=== PATIENT | male | born 1955 | race Caucasian/White ===

== ENCOUNTER 2024-01-26 15:53 | Emergency (ER) | payer MEDICARE, SELFPAY ==
[2024-01-26 16:14] VITALS: BP 133/73; PULSE 67; RESP 16; TEMP 36.3; O2SAT 96; BMI 23.1
[2024-01-26 16:58] VITALS: O2SAT 98
--- NOTE | 2024-01-26 16:58 | CRLHL7_ITS ---
For Patients: As a result of the Century Cures Act, medical imaging exams and procedure reports are released immediately into your electronic medical record. You may view this report before your referring provider. If you have questions, please contact your health care provider. INDICATION: Dyspnea. TECHNIQUE: Chest radiographs, 2 views. COMPARISON: CT chest abdomen and pelvis 09/08/2016. FINDINGS: Cardiovascular/Mediastinum: Normal heart size. Unremarkable. Lungs: No focal consolidation. [place] like opacification in the lung bases bilaterally, likely subsegmental atelectasis and/or scarring. Airways: Trachea remains midline. Pleura: No pleural effusions or pneumothorax. Bones: No acute osseous abnormalities. Upper abdomen: Unremarkable. IMPRESSION: No acute cardiopulmonary process. Dictated by Flavio Mac MD @ 01/26/2024 7:43:09 PM (Electronically Signed)
--- NOTE | 2024-01-26 17:10 | ED_ITS ---
HPI - General Adult General Chief complaint: Shortness of Breath/Dyspnea Stated complaint: shortness of breath, chest pain Time Seen by Provider: 01/26/24 16:57 Source: patient Mode of arrival: ambulatory Limitations: no limitations History of Present Illness HPI narrative: 68-year-old male coming in today concerned about chest pain and cough. States he has had chest pain on and off for the last 8 or 9 days. Nothing seems to make it better or worse. He does think that the pain is getting better with time. He states that his chest was so sore at 1st that he could hardly touch his chest. He does have stairs in his home, he states that the pain is not worse when he has to climb stairs. He complains of cough that is not getting better, he feels like phlegm get stuck in his throat and he can not clear out his lungs. He states that he had a fevers for several days, has not had 1 for the last 5 days. He states that he was in bed for 3 days because he was so ill, again it has been slowly improving. He denies diarrhea or constipation. Appetite has been down. states he has lost approximately 50-60 lb in the last several months. Sleep is unchanged. No nausea. Does not sound like he has been vomiting. No skin rashes. No abdominal discomfort. Patient states that his clothes no longer fit him. Patient also states that when he eats food they seem to get stuck in his throat. He is afraid to eat because of this. Related Data Home Medications ?Medication ?Instructions ?Recorded ?Confirmed No Known Home Medications 01/26/24 01/26/24 Allergies Allergy/AdvReac Type Severity Reaction Status Date / Time No Known Drug Allergies Allergy Verified 01/26/24 16:16 Review of Systems Status of ROS: Reports: 10 or more systems reviewed and unremarkable except as noted in History and below [facility] Social History Smoking Status: Never smoker Do you use any of these nicotine containing products: None How often do you have a drink containing alcohol: never How often do you have six or more drinks on one occasion: Never AUDIT-C Alcohol total score: 0 Non-prescribed substance use: denies use service: No Exam Narrative: Exam Narrative: Well-nourished well-developed patient in no acute distress. Alert and oriented. Answers questions appropriately. Mood and affect are appropriate. Thoughts are goal oriented and rational. No tangential or magical thinking noted. Patient speaks in full sentences without needing to catch his breath. Patient is not a good historian. For example, when I asked him if he has been vomiting he says he has been spitting up phlegm. When I asked him to clarify he spitting up phlegm or vomiting phlegm, he cannot tell me. HEENT: Normocephalic atraumatic. Pupils are equally round reactive to light. Extraocular muscles are intact. Conjunctivae are moist without any icterus noted. He has a small conjunctival hemorrhage on the left. Moist mucous membranes. Poor dentition. Posterior pharynx is normal. Neck is soft without any lymphadenopathy or thyromegaly. No masses are appreciated. Cardiovascular: Heart is regular rate and rhythm S1 and S2 are present without any murmurs. Lungs: Clear to auscultation bilaterally no wheezes rhonchi or rales are appreciated. Patient takes deep breaths without any discomfort. Abdomen: Soft and nontender nondistended with normal bowel sounds. No guarding or rebound. No masses or organomegaly appreciated. Extremities: Bilateral lower extremities are without edema. Normal DP and PT pulses. Skin: Well perfused without any obvious rashes. Const: Vital Signs, click to edit/add: Vital Signs - 24 hr 01/26/24 16:14 01/26/24 16:58 01/26/24 19:42 Temperature 97.4 F L 97.3 F L Pulse Rate [Pulse Oximeter] 67 66 Respiratory Rate 16 18 Blood Pressure [Ri ght Upper Arm] 133/73 161/88 H Pulse Oximetry 96 98 96 Oxygen Delivery Me thod Room Air Room Air Course Course ED Course: EKG, read by me, shows normal sinus rhythm with a pulse of 66. Chest x-ray, read by me, does not show any acute pathology. CBC is unremarkable. Chemistries are normal. LFTs are normal. Troponin is less than 0.01. Normal CRP. COVID positive, influenza negative, RSV negative. Discussed results with patient his family. And appears that he is likely recovering from COVID-19 infection. However, given his continued chest discomfort, and although it does not sound cardiac in nature at this point I do think a stress test would be an important next step for this patient. As far as food getting stuck, we will schedule the patient for an outpatient EGD. This could certainly explain his weight loss. Vital Signs Vital signs: Initial Vital Signs Temperature 97.4 F L 01/26/24 16:14 Temperature Source Temporal Artery Scan 01/26/24 16:14 Pulse Rate 67 01/26/24 16:14 Respiratory Rate 16 01/26/24 16:14 Blood Pressure 133/73 01/26/24 16:14 Blood Pressure Mean 93 01/26/24 16:14 Blood Pressure Position Sitting 01/26/24 16:14 Pulse Oximetry 96 01/26/24 16:14 Oxygen Delivery Method Room Air 01/26/24 16:14 Vital Signs Temperature 97.4 F L 01/26/24 16:14 Pulse Rate 67 01/26/24 16:14 Respiratory Rate 16 01/26/24 16:14 Blood Pressure 133/73 01/26/24 16:14 Pulse Oximetry 96 01/26/24 16:14 Oxygen Delivery Method Room Air 01/26/24 16:14 Temperature 97.3 F L 01/26/24 19:42 Pulse Rate 66 01/26/24 19:42 Respiratory Rate 18 01/26/24 19:42 Blood Pressure 161/88 H 01/26/24 19:42 Pulse Oximetry 96 01/26/24 19:42 Oxygen Delivery Method Room Air 01/26/24 19:42 Medical Decision Making MDM Narrative Medical decision making narrative: [age] year male with COVID-19 infection, in recovery from this infection at this time. Continued rest, hydration. Chest pain-will order an outpatient stress test. Weight loss and food getting stuck in the esophagus - will order an outpatient EGD. Patient does not have primary care provider hence all the reasons his tests are getting ordered from the ED, he will establish care though to go over his results. Lab Data Lab results reviewed: Yes I reviewed the patient's lab results Labs: Lab Results 01/26/24 01/26/24 Range/Units 16:58 17:19 WBC 9.88 (4.50-11.00) K/uL RBC 4.51 (4.30-5.90) m/uL Hgb 13.5 (13.5-17.5) gm/dL Hct 40.7 (37.0-53.0) % MCV 90 (80-100) fL MCH 30 (26-34) pg MCHC 33 (32-36) gm/dL RDW Coeff of Khushboo 12.6 (11.5-15.5) % Plt Count 422 (140-440) K/uL Neut % (Auto) 73.1 H (42.0-72.0) % Lymph % (Auto) 16.2 L (20-44) % [place] % (Auto) 8.4 (0.0-11.0) % Eos % (Auto) 1.9 (0.0-7.0) % Baso % (Auto) 0.3 (0.0-3.0) % Neut # (Auto) 7.20 H (1.7-7.0) K/uL Lymph # (Auto) 1.60 (0.90-2.90) K/uL [place] # (Auto) 0.80 (0.00-0.90) K/UL Eos # (Auto) 0.19 (0.00-0.50) K/uL Baso # (Auto) 0.03 (0.00-0.30) K/uL Abs Immat Gran (auto) 0.01 (0.00-0.30) K/uL Imm/Tot Granulo (auto) 0.1 % Sodium 137 (135-149) mmol/L Potassium 4.3 (3.6-5.1) mmol/L Chloride 103 (96-114) mmol/L Carbon Dioxide 26 (20-32) mmol/L Anion Gap 8 (7-15) mEq/L BUN 18 (7-30) mg/dL Creatinine 0.9 (0.5-1.5) mg/dL Estimated Creat Clear 76.04 Estimated GFR 92 ml/min Glucose 88 (60-115) mg/dL Lactate 0.8 (0.5-1.9) mmol/L Calcium 9.4 (8.4-10.6) mg/dL Total Bilirubin 0.6 (0.1-1.5) mg/dL Direct Bilirubin 0.5 (0.0-0.5) mg/dL AST 32 (12-35) U/L ALT 23 (4-50) U/L Alkaline Phosphatase 87 (40-150) U/L Troponin I < 0.01 L (0.01-0.04) ng/mL C-Reactive Protein 1.0 (0.5-1.0) mg/dL NT-Pro-B Natriuret Pep 101 pg/mL Total Protein 8.5 H (6.0-8.3) g/dL Albumin 4.8 (3.3-5.0) g/dL SARS-CoV-2 (PCR) POSITIVE SARS-CoV-2 A (Negative) Influenza Type A (PCR) Negative PCR FLU A (Negative) Influenza Type B (PCR) Negative PCR FLU B (Negative) RSV (PCR) Negative PCR RSV (Negative) Imaging Data Chest x-ray: Attestation: I have reviewed the pertinent imaging results. Radiologist's impression: Chest radiographs, 2 views. COMPARISON: CT chest abdomen and pelvis 09/08/2016. FINDINGS: Cardiovascular/Mediastinum: Normal heart size. Unremarkable. Lungs: No focal consolidation. [place] like opacification in the lung bases bilaterally, likely subsegmental atelectasis and/or scarring. Airways: Trachea remains midline. Pleura: No pleural effusions or pneumothorax. Bones: No acute osseous abnormalities. Upper abdomen: Unremarkable. IMPRESSION: No acute cardiopulmonary process. ECG Data Attestation: I personally reviewed and interpreted this ECG as follows: Discharge Plan Discharge Clinical Impression: COVID-19, Atypical chest pain, Dysphagia Patient Disposition: Home, Self-Care Condition: Stable Additional Instructions: Make sure to stay well hydrated and eat nutritious meals. Rest as much as you need to. You will be scheduled for an outpatient stress test to make sure there is no other cause for your chest pain and an outpatient EGD which is a camera to look inside your esophagus and stomach. This is very important to ascertain why food is getting stuck when you eat. You need to establish care with a primary care provider so you have someone to go over these results with you. Prescriptions: No Action No Known Home Medications Follow Up/Referrals: Provider,Not a Local [Primary Care Provider] - Stand Alone Forms: Zigh[facility] Info Instructions
[2024-01-26 17:26] LABS: Lactate* 0.8 mmol/L (0.5-1.9)
[2024-01-26 17:29] LABS: Basophils Absolute Auto 0.03 K/uL (0.00-0.30); Basophils Percent Auto 0.3 % (0.0-3.0); Eosinophils Absolute Auto 0.19 K/uL (0.00-0.50); Eosinophils Percent Auto 1.9 % (0.0-7.0); Hematocrit 40.7 % (37.0-53.0); Hemoglobin* 13.5 gm/dL (13.5-17.5); Immature Granulocytes Abs Auto 0.01 K/uL (0.00-0.30); Immature Granulocytes Pct Auto 0.1 %; Lymphocytes Percent Auto 16.2 % (20-44); Mean Corpuscular HGB Conc 33 gm/dL (32-36); Mean Corpuscular Hemoglobin 30 pg (26-34); Mean Corpuscular Volume 90 fL (80-100); Monocytes Percent Auto 8.4 % (0.0-11.0); Neutrophils Percent Auto 73.1 % (42.0-72.0); Platelet Count* 422 K/uL (140-440); RDW Coefficient of Variation % 12.6 % (11.5-15.5); Red Blood Count 4.51 m/uL (4.30-5.90); White Blood Count* 9.88 K/uL (4.50-11.00)
[2024-01-26 17:34] LABS: Slide Review Reflex No
[2024-01-26 18:34] LABS: Chloride* 103 mmol/L (96-114)
[2024-01-26 18:35] LABS: Albumin* 4.8 g/dL (3.3-5.0); Potassium* 4.3 mmol/L (3.6-5.1); Sodium* 137 mmol/L (135-149)
[2024-01-26 18:37] LABS: Creatinine* 0.9 mg/dL (0.5-1.5); Est. Creatinine Clearance* 76.04; Estimated Glomerular Filt Rate 92 ml/min
[2024-01-26 18:38] LABS: Alanine Aminotransferase* 23 U/L (4-50); Alkaline Phosphatase* 87 U/L (40-150); Anion Gap 8 mEq/L (7-15); Aspartate Amino Transferase* 32 U/L (12-35); Bilirubin Direct* 0.5 mg/dL (0.0-0.5); Bilirubin Total* 0.6 mg/dL (0.1-1.5); Blood Urea Nitrogen* 18 mg/dL (7-30); Carbon Dioxide* 26 mmol/L (20-32); Glucose* 88 mg/dL (60-115); Total Protein* 8.5 g/dL (6.0-8.3)
[2024-01-26 18:39] LABS: Calcium* 9.4 mg/dL (8.4-10.6)
[2024-01-26 18:50] LABS: NT Pro B Type NatriureticPept* 101 pg/mL; Troponin I* < 0.01 ng/mL (0.01-0.04)
[2024-01-26 19:16] LABS: PCR FLU A Negative PCR FLU A (Negative); PCR FLU B Negative PCR FLU B (Negative); PCR RSV Negative PCR RSV (Negative); SARS PCR* POSITIVE SARS-CoV-2 (Negative)
[2024-01-26 19:42] VITALS: BP 161/88; PULSE 66; RESP 18; TEMP 36.3; O2SAT 96
--- NOTE | 2024-01-26 19:42 | PC.NURSE ---
Physician in room talking with patient and family. Pt. denies discomfort.
== END 2024-01-26 20:34 | disposition home or self-care (01) ==
PROVIDERS: Emergency Provider Family Medicine
DX: U07.1 COVID-19 (principal); R07.9 Chest pain, unspecified
CPT/HCPCS: 36415; 71046; 80048; 80076; 83605; 83880; 84484; 85025; 86140; 87631; 93005; 94761; 99284

== ENCOUNTER 2024-02-09 12:43 | Outpatient (CLI) | payer MEDICARE, SELFPAY ==
[2024-02-09] MEDS: ASPIRIN 81 MG TAB.CHEW PO (14:22)
--- NOTE | 2024-02-09 14:39 | W.PM.STED ---
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 He is here today with his daughter. Follow-up appointment with Dr. Hernadez is already scheduled. Initial EKG shows normal sinus rhythm with a ventricular rate of 99 blood pressure 164/72, no acute ST wave changes are noted. Patient exercised for a total time of 9 minutes, reached him metabolic limit of 10.5 Mets with a maximum heart rate of 144 which is 112% of the maximum. During this test there were some nonspecific changes of ST wave changes, but nonspecific for ischemia. He did have some chest discomfort after he exercise, described his chest with some radiation to his neck. This came on after, 5 minutes into recovery. He was offered to go over to the emergency room, for further testing, but declined this. He did however agree to take aspirin 81 mg I gave him a dose there. Along with 81 mg after. He did have some reservations with this as he said when he was doing drugs in the past, it cause nosebleeds. I reassured him that I do not think it a small dose like this will cause it, but even if it does we can do cautery and stop the nosebleed. I explained the rationale of the aspirin, and follow up, explained to him the test is not in follow-up bowl, approximately 85% accurate in predicting flow-limiting lesion. But he exercised to a high level. Impression: Negative electrographic portion of stress test, positive subjective portion Follow up suggested: Initial read by tech and myself was negative wall motion abnormality, patient elected to go home at this point. He will take the aspirin 81 mg and follow-up with Dr. Hernadez in follow-up. I explained to him Cardiology over-read will be done on the echo portion. He was comfortable with this.
[2024-02-09 15:34] VITALS: BP 164/72; PULSE 96; RESP 16
== END 2024-02-09 14:15 | disposition home or self-care (01) ==
LOC: STRESS 12:44
PROVIDERS: PCP Family Medicine; Visit Provider Family Medicine
DX: R07.9 Chest pain, unspecified (principal); I35.1 Nonrheumatic aortic (valve) insufficiency; R53.83 Other fatigue
CPT/HCPCS: 93016; 93325; 93351; A9270

== ENCOUNTER 2024-02-14 10:31 | Outpatient (CLI) | payer MEDICARE, SELFPAY | END 2024-02-14 10:32 | disposition home or self-care (01) | PROVIDERS: PCP Family Medicine; Visit Provider Family Medicine | DX: Z01.818 Encounter for other preprocedural examination (principal); Z12.5 Encounter for screening for malignant neoplasm of prostate | CPT/HCPCS: G0103 ==

== ENCOUNTER 2024-02-29 13:30 | Outpatient (CLI) | payer MEDICARE, SELFPAY ==
--- NOTE | 2024-02-29 14:00 | CRLHL7_ITS ---
For Patients: As a result of the Century Cures Act, medical imaging exams and procedure reports are released immediately into your electronic medical record. You may view this report before your referring provider. If you have questions, please contact your health care provider. Indication: Weight loss Technique: CT through the abdomen and pelvis following 84 mL Isovue 370 IV contrast Comparison: CT chest abdomen and pelvis performed 09/08/2016 Findings: Lower chest: Mild atelectasis and/or scarring. Calcified coronary arterial atherosclerosis. Hepatobiliary: There are new but low-dense hepatic lesions compatible with benign biliary cysts, no significant parenchymal abnormality appreciated. Cholelithiasis. Spleen: Splenic granulomata. Pancreas: Unremarkable. Adrenal glands: Unremarkable. Kidneys: Punctate nonobstructing bilateral renal stones. No hydronephrosis. No significant parenchymal abnormality appreciated. Bowel: No obstruction. No focal perienteric or pericolonic stranding is appreciated. Vascular: Calcified and noncalcified atherosclerotic plaque. Lymph nodes: No gross lymphadenopathy. Peritoneum: No free air. No free fluid. : Unremarkable. Soft tissues: Tiny fat containing umbilical and right inguinal hernias. Bones: Lumbosacral fusion hardware. Degenerative changes of the spine and pelvis. Impression: Chronic findings as above with no abnormality appreciated to account for patient`s reported symptoms. Please note that all CT scans at this facility use dose modulation, iterative reconstruction, and/or weight-based dosing when appropriate to reduce radiation dose to as low as reasonably achievable. Dictated by Roman Bonilla MD @ 02/29/2024 8:32:28 PM (Electronically Signed)
[2024-02-29 14:04] LABS: Creatinine* 0.9 mg/dL (0.5-1.5); Estimated Glomerular Filt Rate 92 ml/min
--- NOTE | 2024-02-29 14:30 | CRLHL7_ITS ---
For Patients: As a result of the Century Cures Act, medical imaging exams and procedure reports are released immediately into your electronic medical record. You may view this report before your referring provider. If you have questions, please contact your health care provider. INDICATION: Dizziness. Weight loss. TECHNIQUE: CT of the head with and without contrast. 84 cc Isovue 370 administered. Coronal and sagittal reformats are included. COMPARISON: None. FINDINGS: No mass or pathologic intracranial enhancement. The major intracranial vascular structures fill normally with contrast material. No CT evidence of acute cortical infarct. No loss of morris white matter differentiation. No hyperdense vessels to suggest intracranial thrombus. No acute intracranial hemorrhage. No mass effect or midline shift. No hydrocephalus or extra-axial collections. Scattered white matter hypoattenuation, typical for chronic microvascular ischemic change. Intracranial vascular calcifications. No acute osseous abnormalities. Mastoid air cells and paranasal sinuses are clear. Normal soft tissues. IMPRESSION: 1. No CT evidence of acute cortical infarct. No acute intracranial hemorrhage. No other acute intracranial findings. 2. No mass, pathologic intracranial enhancement, or CT visualized vascular abnormality. Please note that all CT scans at this facility use dose modulation, iterative reconstruction, and/or weight-based dosing when appropriate to reduce radiation dose to as low as reasonably achievable. Dictated by Jerry Healy MD @ 02/29/2024 4:26:32 PM (Electronically Signed)
== END 2024-02-29 13:31 | disposition home or self-care (01) ==
LOC: CT 13:31
PROVIDERS: PCP Family Medicine; Visit Provider Family Medicine
DX: R63.4 Abnormal weight loss (principal); K76.9 Liver disease, unspecified; K40.90 Unilateral inguinal hernia, without obstruction or gangrene, not specified as recurrent; K42.9 Umbilical hernia without obstruction or gangrene; R51.9 Headache, unspecified; R13.10 Dysphagia, unspecified; R42 Dizziness and giddiness
CPT/HCPCS: 36415; 70470; 74177; 82565; Q9967

== ENCOUNTER 2024-03-08 09:36 | Outpatient (CLI) | payer MEDICARE, SELFPAY ==
--- NOTE | 2024-03-08 10:33 | W.ANESCHARGE ---
Anesthesia Charges Start Date/Time Anesthesia Start Date: 03/08/24 Anesthesia Start Time: 10:30 Stop Date/Time Anesthesia Stop Date: 03/08/24 Anesthesia Stop Time: 10:51
--- NOTE | 2024-03-08 10:53 | W.ANESCHARGE ---
Anesthesia Charges Start Date/Time Anesthesia Start Date: 03/08/24 Anesthesia Start Time: 10:30 Stop Date/Time Anesthesia Stop Date: 03/08/24 Anesthesia Stop Time: 10:51
== END 2024-03-08 09:37 | disposition home or self-care (01) ==
LOC: OP CLINIC 09:37
PROVIDERS: PCP Family Medicine; Visit Provider Surgery
DX: R13.10 Dysphagia, unspecified (principal); K44.9 Diaphragmatic hernia without obstruction or gangrene; K22.89 Other specified disease of esophagus; K31.89 Other diseases of stomach and duodenum
CPT/HCPCS: 00731; 43239; 88305; J2704; J3490

== ENCOUNTER 2024-04-17 09:01 | Outpatient (CLI) | payer MEDICARE, SELFPAY ==
--- NOTE | 2024-04-17 09:15 | CRLHL7_ITS ---
For Patients: As a result of the 21st Century Cures Act, medical imaging exams and procedure reports are released immediately into your electronic medical record. You may view this report before your referring provider. If you have questions, please contact your health care provider. EXAM: MRI OF THE RIGHT SHOULDER WITHOUT CONTRAST CLINICAL INDICATION: Right shoulder pain. COMPARISON PLAIN FILMS: None available at time of interpretation. COMPARISON CROSS-SECTIONAL IMAGING STUDIES: None available at time of interpretation. TECHNICAL: Axial, sagittal oblique and coronal oblique T1, PD, PD FS and T2-weighted images. Shoulder surface coil. FINDINGS: ROTATOR CUFF TENDONS AND MUSCLES AND DELTOID: Supraspinatus: Full-thickness tear of the entire supraspinatus tendon with medial retraction to the glenoid. Mild muscle atrophy. No muscle edema. Infraspinatus: Full-thickness tear of the anterior margin of the infraspinatus tendon. Moderate tendinopathy. No muscle atrophy or edema. Subscapularis: High-grade, near full-thickness tear of the subscapularis tendon. Mild muscle atrophy. No muscle edema. Teres Minor: No tendinosis, tendon tearing, muscle atrophy or muscle edema. Deltoid: No muscle atrophy or edema. BURSA: Subacromial-subdeltoid: Small amount of fluid in the subacromial subdeltoid bursa. BICEPS TENDON, LONG HEAD: Full-thickness tear and proximal retraction. CORACOACROMIAL ARCH: Acromial Morphology: Type 2 acromial morphology. Remodeling of the undersurface of the acromion. No downsloping of the acromion or subacromial enthesophyte. No significant subacromial spur. No os acromiale. Acromiohumeral Interval: Superior subluxation of the humeral head with narrowed humeral acromial interval. Coracohumeral Interval: Normal. ACROMIOCLAVICULAR JOINT REGION: AC Joint: Advanced arthropathy with inferior marginal osteophytes. Ligaments: The coracoclavicular ligaments are intact. GLENOHUMERAL JOINT: Joint space: Small glenohumeral joint effusion. Mild synovitis. No loose body. Humeral Head Articular Cartilage: Full-thickness chondromalacia centrally and superiorly. Mild hypertrophic changes. Glenoid Articular Cartilage: Moderate to high-grade chondromalacia superiorly. Mild hypertrophic changes. Labrum: Diffuse tearing and degeneration most prominent in the posterior labrum. No paralabral cyst. Alignment: Superior subluxation of the humeral head. Capsule: No capsular edema or abnormal capsular thickening. OSSEOUS STRUCTURES: No fracture, marrow edema or marrow replacement process. OTHER FINDINGS: There is no abnormality within the suprascapular or spinoglenoid notches nor within the quadrilateral space. No axillary adenopathy or mass. IMPRESSION: 1. Full-thickness tear of the supraspinatus tendon with medial retraction and mild muscle atrophy. 2. Full-thickness tear of the anterior margin of the infraspinatus tendon with moderate tendinopathy. 3. High-grade near full-thickness tear of the subscapularis tendon with mild muscle atrophy. 4. Full-thickness tear and proximal retraction of the long head of the biceps tendon. 5. Superior subluxation of the humeral head with narrowed humeral acromial distance. 6. Glenohumeral osteoarthritis. 7. Diffuse labral tearing and degeneration. 8. Glenohumeral joint effusion and fluid in the subacromial subdeltoid bursa. 9. Prominent arthropathy in the acromioclavicular joint. Dictated by Bennett Hernández MD @ 04/18/2024 10:33:27 AM (Electronically Signed)
== END 2024-04-17 09:02 | disposition home or self-care (01) ==
LOC: MRI 09:02
PROVIDERS: PCP Family Medicine; Visit Provider Family Medicine
DX: M25.511 Pain in right shoulder (principal); M75.101 Unspecified rotator cuff tear or rupture of right shoulder, not specified as traumatic; S46.811A Strain of other muscles, fascia and tendons at shoulder and upper arm level, right arm, initial encounter; M19.011 Primary osteoarthritis, right shoulder; M25.411 Effusion, right shoulder; S43.401A Unspecified sprain of right shoulder joint, initial encounter; G89.29 Other chronic pain
CPT/HCPCS: 73221

== ENCOUNTER 2024-07-02 15:23 | Outpatient (CLI) | payer MEDICARE, SELFPAY | END 2024-07-02 15:24 | disposition home or self-care (01) | PROVIDERS: PCP Family Medicine; Visit Provider Family Medicine | DX: R63.4 Abnormal weight loss (principal) | CPT/HCPCS: 80048; 80061; 85025 ==

== ENCOUNTER 2024-07-10 06:08 | Day surgery (SDC) | payer MEDICARE, SELFPAY ==
[2024-07-10] VITALS (23 sets, daily range): BP systolic 104–144; BP diastolic 66–92; PULSE 56–81; RESP 16–20; TEMP 35.8–36.8; O2SAT 91–97; BMI 25.1
[2024-07-10] MEDS: OXYCODONE (CR) 10 MG TAB.ER.12H PO (06:45)
[2024-07-10] MEDS: ACETAMINOPHEN 500 MG TABLET 1000 MG PO (06:45)
[2024-07-10] MEDS: CELECOXIB 200 MG CAPSULE PO (06:45)
[2024-07-10] MEDS: SODIUM CHLORIDE 0.9 % (FLUSH) 10 ML SYRINGE IVF (07:00)
[2024-07-10] MEDS: LACTATED RINGERS 1000 ML 1,000 ML 100 ML IV ×2 (07:00→11:27)
[2024-07-10] MEDS: fentaNYL 100 MCG/2 ML inj IVP (07:05)
[2024-07-10] MEDS: MIDAZOLAM HCL 1 MG/ML inj IVP (07:05)
--- NOTE | 2024-07-10 07:12 | SUR.PREOP ---
TIME?OUT:?05 PT/RN/MDA?VERIFICATION?OF?SURGICAL?SITE,?PROCEDURE,?AND?CONSENT OBTAINED?PRIOR?TO?INVASIVE?PROCEDURE.
[2024-07-10] MEDS: TRANEXAMIC ACID 100 MG/ML INJ 1000 MG IV (07:48)
[2024-07-10] MEDS: CEFAZOLIN 2 GM INJ IVP (07:48)
--- NOTE | 2024-07-10 09:17 | PM.ORPRC ---
Procedure Note Date of procedure: 07/10/24 Procedure: PREOPERATIVE DIAGNOSIS: Right shoulder rotator cuff tear arthropathy POSTOPERATIVE DIAGNOSIS: Right shoulder rotator cuff tear arthropathy NAME OF OPERATION: Right upper extremity reverse shoulder arthroplasty, biceps tenodesis SURGEON: Nahid Jiménez MD PAINTER DECORATOR: Jessica Ronquillo PA-C, LEONARD Perales ANESTHESIA: General endotracheal ESTIMATED BLOOD LOSS: 150 mL COMPLICATIONS: None SPECIMENS: None DRAINS: None PREOPERATIVE ANTIBIOTICS: Ancef 2 grams IMPLANTS: 1. Tornier 29 mm x 40 mm baseplate 2. 39 mm standard glenosphere 3. 8B humeral stem 4. High eccentric +0 humeral tray 5. 39mm +6 polyethylene INDICATIONS: The patient is a 68-year-old with a longstanding history of severe, unrelenting right shoulder pain secondary to rotator cuff tear arthropathy. Despite appropriate nonoperative management, including activity modification, anti-inflammatories, [id number] pain medication, physical therapy, and injections they continue to have pain and disability. Operative intervention was offered. The risks, benefits and expected outcomes were discussed in detail. These included but were not limited to: Infection, bleeding, injury to blood vessel or nerve, venous thromboembolism. All questions were answered to their satisfaction. Use of an assistant unit forester was necessary throughout the case for patient positioning and safety, soft tissue retraction, and closure. PROCEDURE: General anesthesia was administered. The patient was placed in the lazy beach chair position on the operating room table. The right upper extremity was prepped and draped in the usual sterile fashion. A standard deltopectoral incision was made. Subcutaneous dissection was taken with electrocautery to the deltopectoral interval. The cephalic vein was cauterized. We bluntly entered the deltopectoral interval. We freed up the deltoid. The upper 1/3 of the insertion of the pectoralis was divided with cautery. The static retractor was placed. The clavipectoral fascia and CA ligament were divided. The circumflex vessels were controlled with electrocautery. The biceps was torn and retracted distally. It was poor quality tissue. Two fiberWire sutures were placed in the subscapularis. The subscap was subperiosteally elevated off of the lesser tuberosity. The humeral head was delivered into the wound. The intramedullary humeral cutting guide was placed. We made the cut at the anatomic neck, in 20? of retroversion. Humeral sounds were used to assess the diameter of the canal. The broach was placed and had good rotational stability. The calcar reamer was used and the protective base plate cover was placed. Attention was then turned to the glenoid. Hohmann retractors were placed posteriorly. The labrum and biceps stump were sharply debrided. The origin of the inferior glenohumeral ligaments were subperiosteally released off of the glenoid. The drill guide was placed. The guide pin was placed in 0? of cephalic tilt. The reamer was used to bleeding bone. The central drill was used x2. The tap was used. The standard base plate was placed. This had excellent purchase. Locking screws x 2 were placed. The glenosphere was placed, the set screw was tightened. Attention then returned to the humerus. We placed a high eccentric standard base plate and standard poly. We reduced the shoulder and took it through a range of motion. It was found to be stable with appropriate soft tissue tension. Trial humeral components were removed. We placed #2 FiberWire sutures in the lesser tuberosity for subsequent subscap repair. We assembled the humeral component on the back table. We placed it in the center of our subscapularis repair sutures and tapped it down to our humeral cut. This had excellent purchase. The shoulder was reduced and again was found to be stable with appropriate soft tissue tension. We did a 3 min dilute Betadine solution soak. We irrigated the wound with 3 L of normal saline via pulse lavage. We repaired the subscapularis to the lesser tuberosity with our previously placed FiberWire sutures. The deltopectoral interval was loosely reapproximated with an 0 Vicryl in an interrupted [id number] fashion. Subcutaneous tissues were closed with the 2-0 Vicryl and a running 3-0 Monocryl suture. The skin was sealed with glue. A dry dressing and sling were applied. Sponge and needle counts were correct x2. The patient tolerated the procedure well, there were no apparent complications. They were awakened and extubated in the operating room, taken to the postanesthesia care unit in satisfactory condition. PLAN: The patient will be mobilized with physical therapy. The sling will be used for 6 weeks postoperatively. Active range of motion in forward flexion and abduction as tolerates. No external rotation greater than 0? for 6 weeks postoperatively. They will be discharged to home once medically appropriate.
--- NOTE | 2024-07-10 09:56 | P.ANES_ITS ---
Anesthesia Charges Start Date/Time Anesthesia Start Date: 07/10/24 Anesthesia Start Time: 07:19 Stop Date/Time Anesthesia Stop Date: 07/10/24 Anesthesia Stop Time: 09:54 Coding CPT Codes CPT Codes: ANESTH SHOULDER REPLACEMENT - 43934 ([id number]) P1 - NORMAL HEALTHY PATIENT, QK - BOTTOM POUNDER CEMENT SHOES 2-4 CNCRNT ANES PROC, QX - MANAGER CULINARY SVBernardino W/ MED DIRECTION
--- NOTE | 2024-07-10 09:56 | W.ANESCHARGE ---
Anesthesia Charges Start Date/Time Anesthesia Start Date: 07/10/24 Anesthesia Start Time: 07:19 Stop Date/Time Anesthesia Stop Date: 07/10/24 Anesthesia Stop Time: 09:54 Coding CPT Codes CPT Codes: ANESTH SHOULDER REPLACEMENT - 83152 ([id number]) P1 - NORMAL HEALTHY PATIENT, QK - STRAP MACHINE OPERATOR AUTOMATIC 2-4 CNCRNT ANES PROC, QX - FLAME CUTTER SVBernardino W/ MED DIRECTION
--- NOTE | 2024-07-10 09:59 | CRLHL7_ITS ---
For Patients: As a result of the Cures Act, medical imaging exams and procedure reports are released immediately into your electronic medical record. You may view this report before your referring provider. If you have questions, please contact your health care provider. Indication: post op reverse TSA Technique: One-view right shoulder Findings/Impression: Hardware from a right reverse total shoulder arthroplasty is in satisfactory position. Bone alignment is normal. No sign of acute fracture. Postop changes are within normal limits. Dictated by Lloyd Viveros MD @ 07/10/2024 10:39:08 AM (Electronically Signed)
--- NOTE | 2024-07-10 10:25 | P.NB_ITS ---
Nerve Block Nerve Block Time Seen by Provider: 07:10 Date Seen: 07/10/24 Type of block requested by surgeon for post-operative analgesia: supraclavicular Side: right Time out performed: Yes Verification of patient name: Yes Verification of date of : Yes Site marking: site marked Name of person performing procedure: Gaurav Continuous monitoring Was continuous monitoring of O2 sat, B/P, envelope sealing machine operator, recorded every 15 minutes?: Yes Procedure Checklist: sterile prep, needles and gloves Ultrasound guided. Images saved: Yes Medications given in 5ml increments after negative aspiration: Ropivicaine %: 0.5 mL: 20 Needle gauge: 22 Precedex (mcg): 25 Patient tolerated procedure well: Yes Block Charges Block Charge (with Pro Fee): Brachial Plexus Use of Ultrasound Machine for Block: Yes- US Guidance/pain block
--- NOTE | 2024-07-10 10:25 | P.ANES_ITS ---
Anesthesia Charges Start Date/Time Anesthesia Start Date: 07/10/24 Anesthesia Start Time: 07:19 Stop Date/Time Anesthesia Stop Date: 07/10/24 Anesthesia Stop Time: 09:54 Coding CPT Codes CPT Codes: ANESTH SHOULDER REPLACEMENT - 36398 ([id number]) QK - REPRODUCTIVE HEALTHCARE ASSISTANT 2-4 CNCRNT ANES PROC, QX - RURAL MAIL CARRIER SVC W/ MD MED DIRECTION, P1 - NORMAL HEALTHY PATIENT
--- NOTE | 2024-07-10 10:25 | W.ANESCHARGE ---
Anesthesia Charges Start Date/Time Anesthesia Start Date: 07/10/24 Anesthesia Start Time: 07:19 Stop Date/Time Anesthesia Stop Date: 07/10/24 Anesthesia Stop Time: 09:54 Coding CPT Codes CPT Codes: ANESTH SHOULDER REPLACEMENT - [id number] ([id number]) QK - ELECTRICAL CONTROLS TECHNICIAN 2-4 CNCRNT ANES PROC, QX - NEUROSURGERY RESEARCH DIRECTOR SVC W/ MD MED DIRECTION, P1 - NORMAL HEALTHY PATIENT
[2024-07-10] MEDS: ONDANSETRON 2 MG/ML inj 4 MG IVP (11:15)
[2024-07-10] MEDS: METOCLOPRAMIDE HCL 5 MG/ML INJ 10 MG IVP (11:58)
--- NOTE | 2024-07-10 14:31 | SUR.PHASEII ---
OT here to work with pt. family in room
--- NOTE | 2024-07-10 15:29 | SUR.PHASEII ---
Pt ambulated with OT, family present. Pt and family both stated they would like to go home. Reviewed d/c instructions with family. All questions answered. Right arm in sling, ice packed given to family. Pt wheelchair out to car with family and RN.
== END 2024-07-10 15:10 | disposition home or self-care (01) ==
LOC: OR 06:09
PROVIDERS: PCP Family Medicine; Visit Provider Orthopaedic Surgery
PROC: 0RRJ0JZ Replacement of Right Shoulder Joint with Synthetic Substitute, Open Approach (ICD-10-PCS; CPT 23472; principal; 2024-07-10 07:15)
DX: M75.101 Unspecified rotator cuff tear or rupture of right shoulder, not specified as traumatic (principal); G89.18 Other acute postprocedural pain
CPT/HCPCS: 23472; 01638; 64415; 73030; 76942; 97110; 97165; 97535; A9270; C1713; C1776; J0330; J0690; J1100; J2250; J2405; J2704; J2710; J2765; J2795; J3010; J7120

== ENCOUNTER 2024-08-31 15:09 | Outpatient (CLI) | payer MEDICARE, SELFPAY | END 2024-08-31 15:10 | disposition home or self-care (01) | LOC: MRI 15:09 | PROVIDERS: PCP Family Medicine; Visit Provider Orthopaedic Surgery | DX: M25.512 Pain in left shoulder (principal); M75.101 Unspecified rotator cuff tear or rupture of right shoulder, not specified as traumatic; S46.212A Strain of muscle, fascia and tendon of other parts of biceps, left arm, initial encounter; M19.012 Primary osteoarthritis, left shoulder; M25.412 Effusion, left shoulder; M75.52 Bursitis of left shoulder; M19.011 Primary osteoarthritis, right shoulder | CPT/HCPCS: 73221; 97110; 97140 ==

== ENCOUNTER 2024-10-17 10:30 | Outpatient (RCR) | payer MEDICARE, SELFPAY ==
--- NOTE | 2024-07-03 15:12 | OT.OPOE ---
OT Outpatient Ortho Eval OT Outpatient Ortho Eval* Start: 07/03/24 14:56 Freq: Status: Active Protocol: Document 07/03/24 14:58 [facility] (Rec: 07/03/24 15:07 CSS [id number]) E-signed By Adela Strauss, OTR/L OT OP Ortho Eval Details Complexity Complexity Low Insurance Information Insurance Information [facility],Medicare B Outpatient History/Precautions Current Condition/Medical Diagnosis Referring Provider Dr. 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 Reports will need to get L shoulder done as well as there are limitations. Pt reports will be home with him all day for first 2 weeks , then she will return back to work. Pt has supportive dtr who can assist if needed as well. Pain Assessment Pain Pain Yes Pain Comments mild pain with activity per pt Range of Motion and Strength Shoulder Range of Motion and Strength Shoulder Range of Motion and Strength B shoulder AROM limitations OT Problems Problems Problems Decreased Strength,Decreased Range of Motion,Decreased Dexterity,Pain,Sensory Sensitivity,Lifting,Gripping Other Problems Writing,Opening Containers, Dressing Patient Potential Good Assessment Assessment Assessment Patient is a 68 year old male presenting to the clinic for a Pre-op OT Evaluation. Patient was pleasant, alert, orientated, asked great questions in session, was an active listener to information presented and showed signs of motivation/willingness to follow the presented protocol/ Post-op Instructions & HEP. Pt 's dtr present during session as well and will help in providing care for pt. In session today, patient was provided with resources and education as well as given handouts on the following topics: home modifications/ suggested set-up, potential DME needs and where to purchase items, fall prevention, home safety. Patient was educated on post op restriction, post op exercises, and one handed ADL completion. The patient was a pleasure to work with today and reported at the end of session feeling more prepared for upcoming surgery. Occupational Therapy Treatment Plan - OP Potential Rehabilitation Potential Good Set Goals Goals Set with Patient Yes Goals Goals 1. Patient will be able to properly zaid/doff his shoulder sling w/ SBA. - goal met 2. Patient will demonstrate how to accurately perform his post-op HEP with use of handout (SBA). - goal met Treatment Plan Treatment Plan Evaluation,Therapeutic Exercise,Self Care/Home Management Expected Frequency 1x Week Expected Duration 1 day Home Program Home Program Home Program Initiated Home Program Specifics Exercises included for RUE at 1 set x 10 reps at 2-3x/day: elbow flexion/extension, wrist flexion/extension, wrist circumduction, shoulder flexion to 90 degrees, shoulder horizontal abduction, digit flexion/extension Certification Certification Statement I Certify That: Therapy Services Provided, Therapy Plan Established, Therapy Plan Reviewed Certification Information Clinic ID # [id number] Initial Certification Date 07/03/24 Provider Signature Required Yes Provider Signature Shows Agreement With POC & Medical Necessity Physician NPI Number Write NPI# Here Physician Comment/Change Comment or Changes Physician Signature & Date Requested Please Sign/Date Here
--- NOTE | 2024-07-25 08:56 | PT.OPEX ---
PT [place] Outpatient Eval PT [facility] Outpatient Eval Start: 07/24/24 12:36 Freq: Status: Active Protocol: Document 07/24/24 12:36 LEIGH ANN (Rec: 07/24/24 17:14 LEIGH ANN [id number]) E-signed By Myra Davis PT Physical Therapy Outpatient Evaluation Insurance Information Recert Due Date 10/21/24 Insurance Name Medicare B Insurance Information/Comments MEDICARE A[employer] Medical Diagnosis Right shoulder massive rotator cuff tear with atrophy Right full-thickness tear of the biceps Right superior subluxation of the humeral head Right shoulder glenohumeral osteoarthritis Right shoulder AC joint arthropathy Treating Diagnosis RIGHT SHOULDER WEAKNESS/ MM WASTING RIGHT SHOULDER PAIN RIGHT SHOULDER TIGHTNESS Imaging Report Information MRI 04/17/25: 1. Full-thickness tear of the supraspinatus tendon with medial retraction and mild muscle atrophy. 2. Full-thickness tear of the anterior margin of the infraspinatus tendon with moderate tendinopathy. 3. High-grade near full- thickness tear of the subscapularis tendon with mild muscle atrophy. 4. Full-thickness tear and proximal retraction of the long head of the biceps tendon. 5. Superior subluxation of the humeral head with narrowed humeral acromial distance. 6. Glenohumeral osteoarthritis . 7. Diffuse labral tearing and degeneration. 8. Glenohumeral joint effusion and fluid in the subacromial subdeltoid bursa. 9. Prominent arthropathy in the acromioclavicular joint. Referring MD AUGUSTINE Subjective Preferred Name CHERYL Subjective PATIENT REPORTS ~2YR HISTORY OF DECREASED MOBILITY, STRENGTH, AND INCREASED PAIN WITH ALL MVMT. HE HAS HAD MINIMAL FORMAL PHYSICAL THERAPY IN THE PAST ALONG WITH CORTISONE INJECTIONS WITH LIMITED RELIEF. HE WAS TOLD THAT MY ARM IS BARELY HANGING ON WITH ALL THE DAMAGE THEY FOUND. HAS BEEN WORKING ON HIS HEP SINCE SURGERY CONSISTING OF AAROM H'ABD/H/ ADD SEATED, WRIST/FOREARM AROM , AND ELBOW FLEX/EXT. HE DENIES HAVING PENDULUMS HIS HEP AND UNCLEAR IF THEY WERE INSTRUCTED AT THIS TIME. HE REPORTS USE OF PO OTC AND REST PREDOMINATELY FOR PAIN MGMT ALONG WITH ICE INTERMITTENTLY. Pain Comments -10/04 Date of Last Physician Visit 07/18/24 Date of Next Physician Visit 08/02/24 Date of Surgery (If applicable) 07/10/24 Occupation FORMER MANUAL FRONT OFFICE SUPERVISOR/WALL WORKER Precautions Treatment Precautions/Contraindications 07/18/24 OFFICE VISIT: AROM FLEX, ABD TO TOLERANCE; NO ER >NEUTRAL; SLIN X 6 WEEKS OFF FOR THERAPY AND FOR COMFORT Weight Bearing Status Non-Weight Bearing Objective Other/Pertinent Objective 07/24/24: SUPINE PROM 90/82/ NEUTRAL Functional Test Performed & Score [id number] Assessment Assessment/Impression PATIENT IS A [age]YO REFERRED BY DR. AUGUSTINE TO AL AND TREAT S/P RIGHT rTSA W/BICEPS TENOTOMY. DANIA DEMONSTRATES POOR UNDERSTANDING OF HIS PRECAUTIONS AND RESTRICTION, MIN MOD PAIN AND EDEMA ABOUT THE RIGHT SHOULDER, LIMITED ROM D/T STIFFNESS PRIOR TO SURGERY, MM WASTING, AND SYMPTOMS RELATED TO SURGICAL INTERVENTION ALL OF WHICH ALL ARE CONTRIBUTING TO THE CLINICAL IMPRESSION. PATIENT IS A GOOD CANDIDATE FOR SKILLED PHYSICAL THERAPY TO ADDRESS AFOREMENTIONED DEFICITS ABOVE IN ORDER TO RETURN TO ASYMPTOMATIC STATUS AND RETURN TO UNRESTRICTED MVMTS. HIS CONTRALATERAL SHOULDER IS IN THE SAME CONDITION AND PLANS TO HAVE REPLACEMENT SOON HE HAS ADEQUATELY RECOVERED FROM RIGHT rTSA. INTERVENTION IS NECESSARY BY WAY OF THERAPEUTIC EXERCISES, MANUAL THERAPY, NEUROMUSCULAR EDUCATION, AND STABILIZATION/ PROPRIOCEPTION. PLEASE REFER TO APPROPRIATE SECTION WITHIN THIS EVALUATION FOR COMPLETE LIST OF GOALS AND PLAN OF CARE . DISCHARGE PLAN AND CRITERIA IS FOR PATIENT TO ACHIEVE THE GOALS LISTED BELOW OR UNTIL MAX POTENTIAL MET. PATIENT VERBALIZED UNDERSTANDING AND AGREEABLE TO POC, FREQ, AND GOALS ESTABLISHED. Primary Functional Limitations USE OF RIGHT UE LIFTING CARRYING REACHING ADL'S Plan of Care Rehabilitation Potential Good Physical Therapy Goals STG IN 4-6 WEEKS: 1. PATIENT WILL DEMONSTRATE GOOD MGMT OF HIS PAIN AND EDEMA WITH REPORTED PAIN </3/ 10 DURING HIS HOME PROGRAM AND WITH THE PROGRESSION OF HIS PHYSICAL THERAPY. 2. PATIENT WILL RETURN TO INDEPENDENCE WITH ADL'S, RETURN TO DRIVING, AND MAINTAIN HIS PRECAUTIONS/ RESTRICTIONS 3. PATIENT WILL DEMONSTRATE PROM TO WFL TO PREPARE FOR RETURN TO FUNCTIONAL USE OF RIGHT UE; LTG WITHIN 8-12 WEEKS: 1. PATIENT WILL DEMONSTRATE AROM OF RIGHT SHOULDER TO WFL TO RETURN TO FULL FUNCTIONAL FOR ADL'S, IADL'S AND PEER CENTERED ACTIVITIES. 2. PATIENT WILL DEMONSTRATE FUNCTIONAL STRENGTH TO RETURN TO REACHING OVERHEAD, ANTERIORLY AND OUT TO SIDE NEEDED DURING PATIENT CENTERED ACTIVITIES. 3. PATIENT WILL DEMONSTRATE INDEPENDENCE WITH HIS HEP TO PROGRESS TWD THE ABVE MENTIONED GOALS, CONTINUED MGMT OF SYMPTOMS, AND ONGOING IMPROVEMENT WITH ROM, STRENGTH AND FUNCTION FOR A FULL RETURN TO ALL ACTIVITIES Coordination/Communication With Referral Source Treatment Plan/Direct Interventions Ice/Cold/Vasopneumatic,Joint Mobilization,Manual Therapy, Neuromuscular Re-ed,Orthotics/ Braces,Self-Care/Home Management,Therapeutic Activities,Therapeutic Exercises Frequency/Duration 1-2X/WK Patient Will Be Discharged From Therapy Completion of LTG(s), Independently Progressing Evaluation Billing Untimed Code Treatment Minutes 20 PT Eval No Charge No Complexity Moderate Certification Information Initial Certification Date 07/24/24 Ending Certification Date 10/21/24 Provider Signature Required Yes Provider Signature Shows Agreement With POC & Medical Necessity Physician NPI Number Write NPI# Here Physician Comment/Change : Physician Signature & Date Requested Please Sign/Date Here
== END 2024-11-21 13:42 | disposition home or self-care (01) ==
PROVIDERS: PCP Family Medicine; Visit Provider Orthopaedic Surgery
DX: M19.011 Primary osteoarthritis, right shoulder (principal); Z96.611 Presence of right artificial shoulder joint; Z51.89 Encounter for other specified aftercare
CPT/HCPCS: 97110; 97140; 97162; 97165; 97535; X5282

== ENCOUNTER 2024-12-03 22:23 | Emergency (ER) | payer MEDICARE, SELFPAY ==
[2024-12-03 22:29] VITALS: BP 157/84; PULSE 82; RESP 16; TEMP 37.4; O2SAT 98; BMI 25.1
--- NOTE | 2024-12-03 22:40 | ED.GENADULT ---
HPI - General Adult General Chief complaint: Rib Pain Stated complaint: left rib pain Time Seen by Provider: 12/03/24 22:29 History of Present Illness HPI narrative: tuesday onset L chest pain that increases with deep breath, causes cough and sob. states pain comes and goes, doesnt know of anything else that worsens it . 69-year-old man presenting to the emergency department with concern of left-sided chest pain. Has had a little cough. Hurts to take a deep breath or to move. No trauma noted. No unusual activity. This is 2nd day. Does also struggle with constipation. In June did have a shoulder procedure left rotator cuff tear. He is denying pain in this left shoulder now. Has not had a fever but admittedly has never measured his temperature. 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 Related Data Home Medications ?Medication ?Instructions ?Recorded ?Confirmed multivitamin (Daily Multi-Vitamin 1 tab PO QDAY 02/14/24 08/22/24 tablet) Previous Rx's ?Medication ?Instructions ?Recorded pantoprazole 40 mg tablet,delayed 40 mg PO QDAY #90 tabs 07/02/24 release (Protonix) acetaminophen 500 mg capsule 500 - 1,000 mg (1 - 2 x 500 mg) PO 07/10/24 Q6H PRN pain #100 caps Allergies Allergy/AdvReac Type Severity Reaction Status Date / Time morphine AdvReac anger Verified 08/22/24 10:49 Review of Systems Status of ROS: Reports: 6 or more systems reviewed and unremarkable except as noted in History and below [facility] Medical History Rupture of right biceps tendon ?S46.211A - Strain of muscle, fascia and tendon of other parts of biceps, right arm, initial encounter (ICD-10) Injury of kidney ?S37.009A - Unspecified injury of unspecified kidney, initial encounter (ICD-10) History of substance use disorder ?Z87.898 - Personal history of other specified conditions (ICD-10) COVID-19 (01/26/24) ?U07.1 - COVID-19 (ICD-10) Girard esophagus without dysplasia ?K22.70 - Girard's esophagus without dysplasia (ICD-10) Surgical History Status post reverse arthroplasty of right shoulder (07/10/24) ?Z96.611 - Presence of right artificial shoulder joint (ICD-10) History of arthroscopy of left knee ?Z98.890 - Other specified postprocedural states (ICD-10) Status post osteotomy of left tibial tuberosity ?Z98.890 - Other specified postprocedural states (ICD-10) History of lumbar fusion ?Z98.1 - Arthrodesis status (ICD-10) Social History Narrative: Single, two kids, self-employed, nonsmoker, no EtOH, remote history of drug use What is your current living situation?: I presently have a place to live In the past 12 months, utilities in danger of being shut off: no In past 12 months, lack of transportation kept you from medical appts, meetings, work, or getting things needed for daily living: no In the past 12 mos, have been you worried that your food would run out before you had money to buy more?: never true In the past 12 mos, the food you bought just didn't last and you didn't have money to buy more?: never true Smoking Status: Never smoker Do you use any of these nicotine containing products: None How often do you have a drink containing alcohol: never How often do you have six or more drinks on one occasion: Never AUDIT-C Alcohol total score: 0 Non-prescribed substance use: denies use Caffeine: Yes How often does anyone, including family, friends and others, physically hurt you: never How often does anyone, including family, friends and others, insult or talk down to you: never How often does anyone, including family, friends and others, threaten you with harm: never How often does anyone, including family, friends and others, scream or curse at you: never service: No Exam Narrative: Exam Narrative: Pleasant. Calm. Breathing easily. Moves stiffly. Long nina. . Lungs appear clear with good air movement. Isn't taking big breaths presumably due to worsening discomfort. Is sore to palpation at the left rib margin and over the to lower ribs perhaps. Also sore to palpation in the abdomen at the left upper quadrant to the epigastrium. Abdomen is soft otherwise with present bowel sounds. No peritoneal signs. Lower extremities without edema. Heart in regular rate and rhythm. Does have a 1/6 systolic murmur loudest at the right sternal border. Does not have pain to palpation about the left shoulder area. Skin is warm and dry without rash or evidence of trauma. Const: Vital Signs, click to edit/add: Vital Signs - 24 hr 12/03/24 22:29 12/03/24 23:30 12/03/24 23:31 Temperature 99.3 F Pulse Rate 78 79 Pulse Rate [Pulse Oximeter] 82 Respiratory Rate 16 26 H 23 Blood Pressure 130/79 Blood Pressure [Ri ght Upper Arm] 157/84 H Pulse Oximetry 98 94 94 Oxygen Delivery Me thod Room Air 12/03/24 23:32 12/03/24 23:45 12/04/24 00:00 Temperature Pulse Rate 79 80 83 Pulse Rate [Pulse Oximeter] Respiratory Rate 23 27 H 34 H Blood Pressure Blood Pressure [Ri ght Upper Arm] Pulse Oximetry 94 93 94 Oxygen Delivery Me thod 12/04/24 00:01 12/04/24 00:01 12/04/24 00:01 Temperature Pulse Rate 83 83 83 Pulse Rate [Pulse Oximeter] Respiratory Rate 30 H 30 H 30 H Blood Pressure 146/85 H 146/85 H 146/85 H Blood Pressure [Ri ght Upper Arm] Pulse Oximetry 95 95 95 Oxygen Delivery Me thod Documenting provider has reviewed patient's vital signs: yes Course Vital Signs Vital signs: Initial Vital Signs Temperature 99.3 F 12/03/24 22:29 Temperature Source Temporal Artery Scan 12/03/24 22:29 Pulse Rate 82 12/03/24 22:29 Respiratory Rate 16 12/03/24 22:29 Blood Pressure 157/84 H 12/03/24 22:29 Blood Pressure Mean 108 H 12/03/24 22:29 Blood Pressure Position Sitting 12/03/24 22:29 Pulse Oximetry 98 12/03/24 22:29 Oxygen Delivery Method Room Air 12/03/24 22:29 Vital Signs Temperature 99.3 F 12/03/24 22:29 Pulse Rate 82 12/03/24 22:29 Respiratory Rate 16 12/03/24 22:29 Blood Pressure 157/84 H 12/03/24 22:29 Pulse Oximetry 98 12/03/24 22:29 Oxygen Delivery Method Room Air 12/03/24 22:29 Temperature 99.3 F 12/03/24 22:29 Pulse Rate 83 12/04/24 00:01 Respiratory Rate 30 H 12/04/24 00:01 Blood Pressure 146/85 H 12/04/24 00:01 Pulse Oximetry 95 12/04/24 00:01 Oxygen Delivery Method Room Air 12/03/24 22:29 Medications Administered Medications: Discontinued Medications Generic Name Dose Route Start Last Admin Trade Name Altagracia PRN Reason Stop Dose Admin Sodium Chloride 500 mls @ 500 mls/hr 12/03/24 23:54 12/04/24 00:15 0.9 % Sodium Chloride 500 Ml IV 12/04/24 00:53 500 mls/hr .Q1H ONE Administration Ceftriaxone Sodium 1 gm/ 100 mls @ 200 mls/hr 12/03/24 23:54 12/04/24 00:15 Sodium Chloride IVPB 12/03/24 23:55 200 mls/hr ONCE ONE Administration Ketorolac Tromethamine 30 mg 12/03/24 23:54 12/04/24 00:12 Ketorolac 30 Mg/Ml Inj IVP 12/03/24 23:55 30 mg ONCE ONE Administration Magnesium Citrate 300 ml 12/03/24 23:54 12/04/24 00:10 Magnesium Citrate 300 Ml Solution PO 12/03/24 23:55 300 ml ONCE ONE Administration Medical Decision Making MDM Narrative Medical decision making narrative: Certainly could be constipation at this splenic flexure area that is causing some pain but maybe not palpable rib pain. Pulmonary embolus remains in differential. I doubt that this is a cardiac event. Pleuritis or costochondritis could be related. Possible vascular injury or even splenic infarct. Possible pneumonia. Could be spontaneous or occult rib fracture. Think will start with x-rays of chest and abdomen and collect labs that might indicate further concern. Two-view chest x-ray independently reviewed by me does show left lower lung opacity. This is consistent with where Mr. Cuellar has pain Abdominal x-ray independently reviewed by me shows significant stool burden. Also postoperative hardware. White count is mildly elevated. D-dimer very slightly elevated which I think is better explained by the inflammation present with a CRP of 4.6 At 1 point did cough and had significant flare of pain. I think became more tachypneic at that time. I had ordered for ketorolac, normal saline fluid bolus and a g of Rocephin. Also given a dosing of dexamethasone which might be helpful with some of his pain. He would not want to not receive opiates with history of addiction. Stable vitals, oxygenating 93-95% generally during time in the emergency department. See patient discharge plan for further discussion You have been using Benefiber which does have certain health benefits. Another option might be MiraLax equivalent. Sometimes this works better for people. Either of these can be use regularly prison. Other pill options uyee-[id number]-[id number] that would draw fluid into your gut are bisacodyl. This can be used long-term. Stimulant laxatives containing senna would be another option. Smooth move tea contains senna. All these can be mixed together. If you find though that you are struggling with harder stools, a plug so to speak, I would consider placing a suppository overnight or perhaps an enema and repeating in an hour if no good result. Further bowel cleanout can be accomplished by bottle of magnesium citrate and repeating next day if no good result. We are sending you with a suppository for tonight. You received a g of Rocephin antibiotic here in the emergency department. You received dexamethasone, a steroid, as well. I am also prescribing a course of amoxicillin/clavulanic acid, also known as Augmentin, and azithromycin from [facility]. Take the Augmentin for 8 days. The azithromycin is a 5 day course and lasts another few days yet in your body Can take up to 600 mg of ibuprofen or up to 1000 mg of acetaminophen per dose. These can be combined. Can take up to 375 mg of naproxen 2 times daily. Return for increasing and persistent shortness of breath, uncontrolled pain, escalating fever, worsening weakness. Medical Records Medical records reviewed: Yes I reviewed the patient's medical records Lab Data Lab results reviewed: Yes I reviewed the patient's lab results Labs: Lab Results 12/03/24 Range/Units 22:45 WBC 11.11 H (4.50-11.00) K/uL RBC 4.37 (4.30-5.90) m/uL Hgb 13.2 L (13.5-17.5) gm/dL Hct 38.7 (37.0-53.0) % MCV 89 (80-100) fL MCH 30 (26-34) pg MCHC 34 (32-36) gm/dL RDW Coeff of Khushboo 12.6 (11.5-15.5) % Plt Count 335 (140-440) K/uL Neut % (Auto) 71.0 (42.0-72.0) % Lymph % (Auto) 13.8 L (20-44) % Lares % (Auto) 12.5 H (0.0-11.0) % Eos % (Auto) 1.3 (0.0-7.0) % Baso % (Auto) 0.3 (0.0-3.0) % Neut # (Auto) 7.90 H (1.7-7.0) K/uL Lymph # (Auto) 1.50 (0.90-2.90) K/uL Lares # (Auto) 1.40 H (0.00-0.90) K/UL Eos # (Auto) 0.10 (0.00-0.50) K/uL Baso # (Auto) 0.00 (0.00-0.30) K/uL Abs Immat Gran (auto) 0.10 (0.00-0.30) K/uL Imm/Tot Granulo (auto) 1.1 % D-Dimer Quant (PE/DVT) 0.75 H (0.00-0.50) ug/ml Sodium 138 (135-149) mmol/L Potassium 3.7 (3.6-5.1) mmol/L Chloride 102 (96-114) mmol/L Carbon Dioxide 26 (20-32) mmol/L Anion Gap 10 (7-15) mEq/L BUN 19 (7-30) mg/dL Creatinine 0.9 (0.5-1.5) mg/dL Estimated Creat Clear 73.21 Estimated GFR 92 ml/min Glucose 112 (60-115) mg/dL Calcium 9.1 (8.4-10.6) mg/dL Troponin I < 0.01 (0.01-0.04) ng/mL C-Reactive Protein 4.6 H (0.5-1.0) mg/dL NT-Pro-B Natriuret Pep 105 (See Note) pg/mL Discharge Plan Discharge Clinical Impression: Pneumonia, Constipation, Chest pain Patient Disposition: Home w/ Parent or Adult Condition: Stable Additional Instructions: You have been using Benefiber which does have certain health benefits. Another option might be MiraLax equivalent. Sometimes this works better for people. Either of these can be use regularly intermediate project manager. Other pill options ytaj-kzo-rkjloia that would draw fluid into your gut are bisacodyl. This can be used long-term. Stimulant laxatives containing senna would be another option. Smooth move tea contains senna. All these can be mixed together. If you find though that you are struggling with harder stools, a plug so to speak, I would consider placing a suppository overnight or perhaps an enema and repeating in an hour if no good result. Further bowel cleanout can be accomplished by bottle of magnesium citrate and repeating next day if no good result. We are sending you with a suppository for tonight. You received a g of Rocephin antibiotic here in the emergency department. You received dexamethasone, a steroid, as well. I am also prescribing a course of amoxicillin/clavulanic acid, also known as Augmentin, and azithromycin from [facility]. Take the Augmentin for 8 days. The azithromycin is a 5 day course and lasts another few days yet in your body Can take up to 600 mg of ibuprofen or up to 1000 mg of acetaminophen per dose. These can be combined. Can take up to 375 mg of naproxen 2 times daily. Return for increasing and persistent shortness of breath, uncontrolled pain, escalating fever, worsening weakness. Prescriptions: No Action pantoprazole [Protonix] 40 mg tablet,delayed release (DR/EC) 40 mg PO QDAY Qty: 90 3RF multivitamin [Daily Multi-Vitamin] Tablet 1 tab PO QDAY acetaminophen 500 mg capsule 500 - 1,000 mg PO Q6H MDD 4000mg per day PRN (Reason: pain) Qty: 100 0RF Follow Up/Referrals: Lloyd Hernadez MD [Primary Care Provider, Family Practice] Stand Alone Forms: RECOM[employer]COMth Info Instructions
--- NOTE | 2024-12-03 23:02 | CRLHL7_ITS ---
For Patients: As a result of the Century Cures Act, medical imaging exams and procedure reports are released immediately into your electronic medical record. You may view this report before your referring provider. If you have questions, please contact your health care provider. INDICATION: Low left chest pain. TECHNIQUE: Chest 2 views. COMPARISON: 09/26/2023. FINDINGS: Cardiovascular and mediastinum: Heart size and vasculature are normal in caliber and appearance. Lungs and pleural spaces: New patchy airspace opacities within the left lower lobe. No pleural effusion or pneumothorax. Bones and soft tissues: Partially imaged lumbar spine fusion changes. Right shoulder arthroplasty. Otherwise, unremarkable for age. IMPRESSION: New patchy airspace opacities within the left lower lobe, compatible with pneumonia. Recommend follow-up imaging after treatment to ensure resolution. Dictated by John Nj MD @ 12/03/2024 11:21:51 PM (Electronically Signed)
--- NOTE | 2024-12-03 23:02 | CRLHL7_ITS ---
For Patients: As a result of the Cures Act, medical imaging exams and procedure reports are released immediately into your electronic medical record. You may view this report before your referring provider. If you have questions, please contact your health care provider. INDICATION: Left upper abdominal pain, constipation TECHNIQUE: Abdomen Pelvis radiograph 2 views COMPARISON: None FINDINGS: Bowel: A large amount of stool is present throughout the colon which may be due to chronic constipation. The bowel gas pattern is normal without evidence of bowel obstruction. Soft tissue: No evidence of pneumoperitoneum present. Patchy consolidation is partially visualized in the left lung base. No suspicious calcifications noted. Bone: Posterior spinal fusion of the lumbosacral spine is noted. IMPRESSIONS: 1. Unremarkable appearance of the visualized abdomen. 2. Patchy consolidation is partially visualized in the left lung base. Dictated by Matt Bejarano MD @ 12/03/2024 11:21:26 PM Dictated by: Matt Bejarano MD @ 12/03/2024 23:21:28 (Electronically Signed)
[2024-12-03 23:11] LABS: Basophils Percent Auto 0.3 % (0.0-3.0); Eosinophils Percent Auto 1.3 % (0.0-7.0); Hematocrit 38.7 % (37.0-53.0); Hemoglobin* 13.2 gm/dL (13.5-17.5); Immature Granulocytes Pct Auto 1.1 %; Lymphocytes Percent Auto 13.8 % (20-44); Mean Corpuscular HGB Conc 34 gm/dL (32-36); Mean Corpuscular Hemoglobin 30 pg (26-34); Mean Corpuscular Volume 89 fL (80-100); Monocytes Percent Auto 12.5 % (0.0-11.0); Platelet Count* 335 K/uL (140-440); RDW Coefficient of Variation % 12.6 % (11.5-15.5); Red Blood Count 4.37 m/uL (4.30-5.90); White Blood Count* 11.11 K/uL (4.50-11.00)
[2024-12-03 23:15] LABS: Slide Review Reflex No
[2024-12-03 23:21] LABS: Chloride* 102 mmol/L (96-114); Sodium* 138 mmol/L (135-149)
[2024-12-03 23:22] LABS: Potassium* 3.7 mmol/L (3.6-5.1)
[2024-12-03 23:25] LABS: Anion Gap 10 mEq/L (7-15); Blood Urea Nitrogen* 19 mg/dL (7-30); Calcium* 9.1 mg/dL (8.4-10.6); Carbon Dioxide* 26 mmol/L (20-32); Creatinine* 0.9 mg/dL (0.5-1.5); Est. Creatinine Clearance* 73.21; Estimated Glomerular Filt Rate 92 ml/min; Glucose* 112 mg/dL (60-115)
[2024-12-03 23:28] LABS: C Reactive Protein* 4.6 mg/dL (0.5-1.0)
[2024-12-03 23:30] VITALS: PULSE 78; RESP 26; O2SAT 94
[2024-12-03 23:31] VITALS: BP 130/79; PULSE 79; RESP 23; O2SAT 94
[2024-12-03 23:32] VITALS: PULSE 79; RESP 23; O2SAT 94
[2024-12-03 23:37] LABS: NT Pro B Type NatriureticPept* 105 pg/mL (See Note); Troponin I* < 0.01 ng/mL (0.01-0.04)
[2024-12-03 23:41] LABS: D Dimer Quantitative* 0.75 ug/ml (0.00-0.50)
[2024-12-03 23:45] VITALS: PULSE 80; RESP 27; O2SAT 93
[2024-12-04] VITALS (9 sets, daily range): BP systolic 127–146; BP diastolic 79–93; PULSE 80–84; RESP 20–34; O2SAT 93–95
[2024-12-04] MEDS: MAGNESIUM CITRATE 300 ML SOLUTION PO (00:10)
[2024-12-04] MEDS: KETOROLAC 30 MG/ML inj IVP (00:12)
[2024-12-04] MEDS: cefTRIAXone 1 GM in 0.9 % SODIUM CHLORIDE Mini-bag 100 ML IVPB (00:15)
[2024-12-04] MEDS: 0.9 % SODIUM CHLORIDE 500 ML 500 ML IV (00:15)
[2024-12-04] MEDS: dexAMETHasone 4 MG/ML VIAL 10 MG IVP (01:07)
== END 2024-12-04 01:14 | disposition home or self-care (01) ==
PROVIDERS: Emergency Provider Family Medicine; PCP Family Medicine
DX: J18.9 Pneumonia, unspecified organism (principal); K59.00 Constipation, unspecified; R07.9 Chest pain, unspecified
CPT/HCPCS: 36415; 71046; 74018; 80048; 83880; 84484; 85025; 85379; 86140; 96365; 96375; 99284; 99285; A9270; J0696; J1100; J1885; J7030

== ENCOUNTER 2025-04-22 09:17 | Outpatient (CLI) | payer MEDICARE, SELFPAY | END 2025-04-22 09:18 | disposition home or self-care (01) | PROVIDERS: PCP Family Medicine; Visit Provider Family Medicine | DX: Z01.818 Encounter for other preprocedural examination (principal); Z12.5 Encounter for screening for malignant neoplasm of prostate | CPT/HCPCS: 80048; 85025; G0103 ==

== ENCOUNTER 2025-05-13 06:48 | Day surgery (SDC) | payer MEDICARE, SELFPAY ==
[2025-05-13] VITALS (15 sets, daily range): BP systolic 109–146; BP diastolic 63–85; PULSE 69–90; RESP 12–19; TEMP 36.3–36.7; O2SAT 91–95; BMI 25.4
--- NOTE | 2025-05-13 07:14 | W.PM.H&PU ---
History & Physical Update History & Physical Update H&P Reviewed and patient assessed: No changes noted
[2025-05-13] MEDS: SODIUM CHLORIDE 0.9 % (FLUSH) 10 ML SYRINGE IVF (07:30)
[2025-05-13] MEDS: LACTATED RINGERS 1000 ML 1,000 ML 100 ML IV ×2 (07:30→11:40)
--- NOTE | 2025-05-13 07:58 | SUR.PREOP ---
TIME?OUT:?0758 PT/RN/MDA?VERIFICATION?OF?SURGICAL?SITE,?PROCEDURE,?AND?CONSENT OBTAINED?PRIOR?TO?INVASIVE?PROCEDURE.
[2025-05-13] MEDS: MIDAZOLAM HCL 1 MG/ML inj IVP (07:59)
[2025-05-13] MEDS: OXYCODONE (CR) 10 MG TAB.ER.12H PO (07:59)
[2025-05-13] MEDS: ACETAMINOPHEN 500 MG TABLET 1000 MG PO (07:59)
[2025-05-13] MEDS: TRANEXAMIC ACID 100 MG/ML INJ 1000 MG IV (08:40)
--- NOTE | 2025-05-13 10:46 | PM.ORPRC ---
Procedure Note Date of procedure: 05/13/25 Procedure: PREOPERATIVE DIAGNOSIS: 1. Left shoulder cuff tear arthropathy POSTOPERATIVE DIAGNOSIS: 1. Left shoulder cuff tear arthropathy 2. Left long head of the biceps tendinopathy and tenosynovitis PROCEDURE: 1. Left reverse shoulder arthroplasty. 2. Left long head of biceps open tenodesis SURGEON: Abdiel Marcus MD. HOSPITALITY HOUSE SUPERVISOR: Delta PETERSEN - Of note, a skilled assistant merchandise manager was critical for this case to aid in patient positioning, tissue retraction, limb manipulation/positioning, retraction for glenoid exposure, which was challenging, awareness and protection of critical structures, and closure. ANESTHESIA: General plus supraclavicular block IMPLANTS: DePuy INHANCE reverse shoulder arthroplasty (uncemented glenoid component; cemented humeral component due to poor bone quality) size large humeral stem Neutral reverse humeral tray with +0 mm poly 29 mm glenoid base plate with 6 x 30 mm separate central screw 2 locking perimeter screws 36mm +4mm glenosphere. COMPLICATIONS: None evident INDICATIONS: The patient is a pleasant 69-year-old male who has experienced severe left shoulder pain and difficulty with use. Workup included imaging which revealed severe osteoarthrosis along with concern for rotator cuff quality. Physical exam was consistent with associated pain. Given the deformity, the dysfunction, and the pain, and failure of nonoperative management, recommendation was made for surgery. DESCRIPTION OF PROCEDURE: Following a thorough discussion of risks, benefits, and alternatives, consent was obtained and the left shoulder was marked. The patient was brought to the operating room and placed supine on the operating table. Induction of anesthesia was undertaken. 2 g IV Ancef and 1 g tranexamic acid was administered within 1 hr of incision preoperatively. Appropriate time-out was performed identifying proper patient, site, and procedure. The operative extremity was prepped and draped in the appropriate sterile fashion using ChloraPrep after the patient was positioned in the lazy beach chair position with head in neutral alignment and all bony prominences well padded. A longitudinal incision was made for deltopectoral approach. Deltoid and cephalic vein were retracted medially, and the clavipectoral fascia was identified and divided longitudinally staying lateral to the conjoined tendon / coracoid. The conjoined tendon was protected with a blunt Hohmann. The long head of the biceps tendon was identified and the bicipital sheath released. The upper 1/3 of the pectoralis major was also released from its insertion. The long head of the biceps was tenodesed to the pectoralis major tendon. The remaining proximal tendon tissue was excised. The rotator cuff was inspected and found to have poor integrity, and a decision for a reverse shoulder arthroplasty was confirmed. A subscapularis cuff of tissue was left via tenotomy for later repair with the remaining subscapularis released in a subperiosteal fashion with the Bovie (of note, the subscapularis was quite thin/attenuated). This was tagged for later repair. The 3 sisters were cauterized. The upper subscapularis was released from the capsule with a curved White scissors towards the glenoid. The inferior subscapularis muscle was divided from the capsular tissue on its caudal surface with particular caution for the axillary nerve. This was palpated anterior to the subscapularis both prior to and near the finish of the case. Inferior humeral head osteophytes were excised with caution taken throughout the case with regards to the axillary nerve. The humerus was dislocated, and humeral head cut completed. The canal was then entered, and various broaches were utilized up to the size noted above with good rotational control. The aim of retroversion for the humeral component was consistent with the patient's anatomy. Humeral head was protected with a plate, and attention was then turned to the glenoid. The humerus was retracted posteriorly. The subscap was protected anteriorly and the labrum/long head biceps origin was excised circumferentially. The capsule was released along the anterior and inferior portions of the glenoid cautiously with a Davison elevator being careful not to penetrate deep. The glenoid had appropriate exposure, and was prepared with the cannulated system. After placing the guide pin, the glenoid reaming was performed with the Reamer. Following this, preparation was complete with this central drill, the real base plate was opened, and inserted, and excellent purchase was achieved with the central screw. Peripheral screws were then drilled, measured, and placed accordingly again achieving excellent purchase. At this point, the humerus was reassessed and found that the previous broach size was appropriate but when testing its stability with the metaphyseal/diaphyseal bone, it did not have good purchase. We did pack the metaphyseal region with more bone from humeral head, but it still did not have good purchase. Therefore, we elected to cement the distal 2/3 of the stem. This cement was allowed to cure and this finally allowed good rotational control. We trialed various humeral trays and found to have the best fit with those noted above. The trial poly was also placed, and the shoulder reduced. It had excellent tension on the conjoined tendon, and excellent stability throughout range of motion yet achieving appropriate range of motion. At this stage, the trial implants were removed, and the real implants inserted. Subscapularis was repaired with #2 FiberWire to the cuff of tissue on the lesser tuberosity. Excellent reapproximation of tissue achieved. A single far lateral rotator cuff interval suture was placed with # 1 Vicryl. A 3 minute Betadine soak was performed followed by a thorough irrigation with normal saline. The rotator interval was reapproximated especially laterally, and hemostasis was found to be appropriate. The deltopectoral interval was reapproximated with 0 Vicryl, subcutaneous and subcuticular closure was then performed with number 2-0 Vicryl and 4-0 Monocryl, respectively. a skilled assistant merchandise manager was critical for this case to aid in patient positioning, tissue retraction, limb manipulation/positioning, retraction for glenoid exposure, which was challenging, awareness and protection of critical structures, and closure. PLAN: 1. Sling much of the time for the operative upper extremity. 2. AROM of elbow, forearm, wrist, and digits as tolerated. 3. OT consults for education and assistance. 4. Social consult for discharge planning. 5. Early ambulation, and SCDs for DVT prophylaxis.
--- NOTE | 2025-05-13 11:08 | P.ANES_ITS ---
Anesthesia Charges Start Date/Time Anesthesia Start Date: 05/13/25 Anesthesia Start Time: 08:28 Stop Date/Time Anesthesia Stop Date: 05/13/25 Anesthesia Stop Time: 11:07 Coding CPT Codes CPT Codes: ANESTH SHOULDER REPLACEMENT - 32880 ([id number]) P2 - PATIENT W/MILD SYST DISEASE, QK - LEAVE SPECIALIST 2-4 CNCRNT ANES PROC, QX - HABILITATION SPECIALIST SVC W/ MD MED DIRECTION
--- NOTE | 2025-05-13 11:08 | W.ANESCHARGE ---
Anesthesia Charges Start Date/Time Anesthesia Start Date: 05/13/25 Anesthesia Start Time: 08:28 Stop Date/Time Anesthesia Stop Date: 05/13/25 Anesthesia Stop Time: 11:07 Coding CPT Codes CPT Codes: ANESTH SHOULDER REPLACEMENT - 66673 ([id number]) P2 - PATIENT W/MILD SYST DISEASE, QK - HOME CARE PHYSICAL THERAPIST 2-4 CNCRNT ANES PROC, QX - SCIENTIFIC PUBLICATIONS EDITOR SVC W/ MD MED DIRECTION
--- NOTE | 2025-05-13 11:20 | CRLHL7_ITS ---
For Patients: As a result of the Century Cures Act, medical imaging exams and procedure reports are released immediately into your electronic medical record. You may view this report before your referring provider. If you have questions, please contact your health care provider. Indication: Left total shoulder Technique: Two views left shoulder, 3 images Findings/Impression: Hardware from a left total shoulder arthroplasty is in satisfactory position. Bone alignment is normal. No sign of acute fracture. Postop changes are within normal limits. Dictated by Lloyd Viveros MD @ 05/13/2025 11:59:16 AM (Electronically Signed)
--- NOTE | 2025-05-13 11:37 | SUR.PHASEI ---
patient met discharge criteria per anesthesia
--- NOTE | 2025-05-13 12:20 | P.ANES_ITS ---
Anesthesia Charges Start Date/Time Anesthesia Start Date: 05/13/25 Anesthesia Start Time: 08:28 Stop Date/Time Anesthesia Stop Date: 05/13/25 Anesthesia Stop Time: 11:07 Summary Extremes of Age - Over 70 or under 1: MDA Coding CPT Codes CPT Codes: ANESTH SHOULDER REPLACEMENT - 36833 ([id number]) P2 - PATIENT W/MILD SYST DISEASE, QK - SAP ARCHITECT 2-4 CNCRNT ANES PROC, QX - BULLION WEIGHER SVC W/ MD MED DIRECTION Additional Codes: Summary - Extremes of Age - Over 70 or under 1: MDA ([id number])
--- NOTE | 2025-05-13 12:20 | W.ANESCHARGE ---
Anesthesia Charges Start Date/Time Anesthesia Start Date: 05/13/25 Anesthesia Start Time: 08:28 Stop Date/Time Anesthesia Stop Date: 05/13/25 Anesthesia Stop Time: 11:07 Summary Extremes of Age - Over 70 or under 1: MDA Coding CPT Codes CPT Codes: ANESTH SHOULDER REPLACEMENT - 61623 ([id number]) P2 - PATIENT W/MILD SYST DISEASE, QK - BEHAVIOR SPECIALIST 2-4 CNCRNT ANES PROC, QX - CART DRIVER SVC W/ MD MED DIRECTION Additional Codes: Summary - Extremes of Age - Over 70 or under 1: MDA ([id number])
--- NOTE | 2025-05-13 12:21 | W.PM.NB ---
Nerve Block Nerve Block Time Seen by Provider: 08:00 Date Seen: 05/13/25 Type of block requested by surgeon for post-operative analgesia: supraclavicular Side: left Time out performed: Yes Verification of patient name: Yes Verification of date of : Yes Site marking: site marked Name of person performing procedure: Gaurav Continuous monitoring Was continuous monitoring of O2 sat, B/P, adding machine mechanic, recorded every 15 minutes?: Yes Procedure Checklist: sterile prep, needles and gloves Ultrasound guided. Images saved: Yes Medications given in 5ml increments after negative aspiration: Ropivicaine %: 0.5 mL: 20 Needle gauge: 22 Precedex (mcg): 25 Patient tolerated procedure well: Yes Block Charges Block Charge (with Pro Fee): Brachial Plexus Use of Ultrasound Machine for Block: Yes- US Guidance/pain block
[2025-05-13] MEDS: ONDANSETRON 2 MG/ML inj 4 MG IVP (13:07)
--- NOTE | 2025-05-13 14:16 | SUR.PHASEII ---
Patient was able to ambulate with standby assistance in a [place] around the unit. Patient denies any nausea or pain at this time. OT with patient in room. Family present.
== END 2025-05-13 14:57 | disposition home or self-care (01) ==
PROVIDERS: PCP Family Medicine; Visit Provider Orthopaedic Surgery Sports Medicine
PROC: 0RRJ0JZ Replacement of Right Shoulder Joint with Synthetic Substitute, Open Approach (ICD-10-PCS; CPT 23472; principal; 2025-05-13 09:00)
DX: M75.122 Complete rotator cuff tear or rupture of left shoulder, not specified as traumatic (principal); M75.22 Bicipital tendinitis, left shoulder; G89.18 Other acute postprocedural pain
CPT/HCPCS: 23472; 23430; 01638; 64415; 73030; 76942; 97110; 97165; 97535; 99100; A9270; C1713; C1776; J0330; J0690; J1100; J2250; J2371; J2405; J2704; J2795; J3010; J7120